=== PATIENT | female | born 1980 | race Two or more races ===

== ENCOUNTER 2016-07-04 16:16 | Emergency (ER) | payer OTHER ==
[~2016-07-04] VITALS: Ht 157.5 cm; Wt 85.9 kg
[~2016-07-04 16:16] MED LIST: RANI75TA12 PO
[2016-07-04 16:45] VITALS: BP 136/67
--- NOTE | 2016-07-04 17:00 | PHYS DOC ---
Past Medical History Past Medical History: Anxiety Past Surgical History: Cholecystectomy Alcohol Use: Occasionally Drug Use: None Adult General Chief Complaint Chief Complaint: UPPER EXTREMITY PAIN HPI HPI Patient is a 36 year old female presents emergency room with a complaint of left shoulder pain after slip and fall within the past 2 hours while walking out of the gym. Patient states that she slipped on ice and fell with her left arm extended which caught her body weight. States that she felt pain in her left shoulder since that period of time. Patient denies any history of previous shoulder injuries. She denies any history of bone forming disorders. Patient denies striking her head or loss of consciousness during this episode.] Review of Systems Review of Systems Constitutional: Denies fever or chills [] Eyes: Denies change in visual acuity, redness, or eye pain [] HENT: Denies nasal congestion or sore throat [] Respiratory: Denies cough or shortness of breath [] Cardiovascular: No additional information not addressed in HPI [] GI: Denies abdominal pain, nausea, vomiting, bloody stools or diarrhea [] : Denies dysuria or hematuria [] Musculoskeletal: Denies back pain or joint pain [] Integument: Denies rash or skin lesions [] Neurologic: Denies headache, focal weakness or sensory changes [] Endocrine: Denies polyuria or polydipsia [] Allergies Allergies Allergies Coded Allergies Type Severity Reaction Last Updated Verified No Known Drug Allergies 10/19/13 No Physical Exam Physical Exam Constitutional: Well developed, well nourished, no acute distress, non-toxic appearance. [] HENT: Normocephalic, atraumatic, bilateral external ears normal, oropharynx moist, no oral exudates, nose normal. [] Eyes: PERRLA, EOMI, conjunctiva normal, no discharge. [] Neck: Normal range of motion, no tenderness, supple, no stridor. [] Cardiovascular:Heart rate regular rhythm, no murmur [] Lungs & Thorax: Bilateral breath sounds clear to auscultation [] Abdomen: Bowel sounds normal, soft, no tenderness, no masses, no pulsatile masses. [] Skin: Warm, dry, no erythema, no rash. [] Back: No tenderness, no CVA tenderness. [] Extremities: Left shoulder is normal in appearance and nontender to palpation upon exam. Patient does complain of increased pain when performing abduction and circumduction. She also complains of increased pain she is attempting to reach to her back as if she is attempting to scratch her back. There is no palpable defect, deformity, instability or crepitus. Patient's left elbow, forearm, wrist and hand are normal in appearance and nontender palpation. Left upper extremity is neurovascularly intact with capillary refill less than 2 seconds. Neurologic: Alert and oriented X 3, normal motor function, normal sensory function, no focal deficits noted. [] Psychologic: Affect normal, judgement normal, mood normal. [] Current Patient Data Vital Signs Vital Signs Date Time Temp Pulse Resp B/P Pulse Ox O2 Delivery O2 Flow Rate FiO2 07/04/16 16:45 98.5 61 20 99 Room Air 98.5 EKG EKG [] Radiology/Procedures Radiology/Procedures 3 views patient's left shoulder performed with adequate technique. There is no evidence of fracture or dislocation. Course & Med Decision Making Course & Med Decision Making Pertinent Labs and Imaging studies reviewed. (See chart for details) [] Dragon Disclaimer Dragon Disclaimer This electronic medical record was generated, in whole or in part, using a voice recognition dictation system. Departure Departure Impression: Primary Impression: Left shoulder strain Disposition: HOME, SELF-CARE Condition: GOOD Referrals: NAIDA PEACE (PCP) Patient Instructions: Shoulder Sprain Additional Instructions: 1. X-rays of your shoulder today are normal. 2. Take the medication as prescribed. 3. Review the discharge instructions for self-care reasons to return the emergency department. 4. Call your primary care doctor's office Tuesday to schedule follow-up appointment to be seen within the next 5-7 days. Scripts Hydrocodone/Apap 5-325 ([place] 5-325 Tablet)1 Each Tablet1 Tab PO PRN Q6HRS PRN PAIN #10 TAB Prov:CHANELL RIVERA 07/04/16 Naproxen Sodium (Anaprox Ds)550 Mg [id number] Mg PO every 12 hours #20 Prov:CHANELL RIVERA 07/04/16 CHANELL RIVERA Jul 04, 2016 17:00
[2016-07-04] MEDS ORDERED: HYDR-971 PO (18:00)
[2016-07-04] MEDS ORDERED: NAPR550T PO (18:00)
--- NOTE | 2016-07-05 07:59 | RAD ---
Left shoulder, 3 views, 07/04/2016: History: Pain after a fall No fracture or dislocation is identified. The periarticular soft tissues are unremarkable. IMPRESSION: No acute left shoulder abnormality is detected.
== END 2016-07-04 18:04 | disposition home or self-care (01) ==
LOC: ER 16:16
DX: S46.912A Strain of unspecified muscle, fascia and tendon at shoulder and upper arm level, left arm, initial encounter (principal); W01.0XXA Fall on same level from slipping, tripping and stumbling without subsequent striking against object, initial encounter; Y93.89 Activity, other specified; Y92.89 Other specified places as the place of occurrence of the external cause; Y99.8 Other external cause status
CPT/HCPCS: 73030; 99284

== ENCOUNTER 2016-11-15 10:25 | Emergency (ER) | payer OTHER ==
[~2016-11-15 10:25] MED LIST changes: +HYDR-971 PO; +NAPR550T PO
[2016-11-15 10:48] VITALS: BP 141/74
[2016-11-15 12:08] LABS: BILIRUBIN,URINE NEGATIVE (NEG); GLUCOSE,URINE NEGATIVE (NEG); NITRITE,URINE NEGATIVE (NEG); PROTEIN,URINE NEGATIVE (NEG-TRACE); UROBILINOGEN,URINE 0.2 mg/dL (0.2 mg/dL)
[2016-11-15 12:18] LABS: BACTERIA,URINE FEW /HPF (0-FEW); RBC,URINE 0 /HPF (0-2); SQUAMOUS EPITHELIAL CELL,UR MOD /LPF; YEAST,URINE PRESENT /HPF
[2016-11-15] MEDS ORDERED: cefTRIAXone IM 250 MG VIAL IM ONE (13:45)
[2016-11-15] MEDS ORDERED: AZITHROMYCIN 250 MG TABLET. PO ONE (13:45)
[2016-11-15] MEDS ORDERED: FLUCONAZOLE 100 MG TABLET. PO ONE (13:45)
[2016-11-15] MEDS ORDERED: AMOX1TAB61 PO (13:52)
[2016-11-15] MEDS ORDERED: FLUC150T PO (13:52)
--- NOTE | 2016-11-15 13:52 | PHYS DOC ---
Past Medical History Past Medical History: Anxiety Past Surgical History: Cholecystectomy Alcohol Use: Occasionally Drug Use: None Adult General Chief Complaint Chief Complaint: ABDOMINAL PAIN HPI HPI Patient is a 36 year old female who presents with suprapubic pain for about 2 weeks. She was seen in urgent care 2 weeks ago with this complaint and was diagnosed with UTI. She was started on Bactrim. She did have some urinary urgency and some dysuria which resolved, but the suprapubic discomfort has not gone away. She is also noticed a little bit of a clear vaginal discharge. Patient has not had frequent UTIs. She did have a Mirena IUD placed on August 10 and has not really had consistent menstrual periods since then. She did have some spotting a while back. The IUD was placed by the health department. 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 Patient is sexually active. She has not had a fever. Review of Systems Review of Systems Constitutional: Denies fever or chills [] Respiratory: Denies cough or shortness of breath [] GI: Denies abdominal pain, nausea, vomiting, bloody stools or diarrhea [] : As in history of present illness Current Medications Current Medications Current Medications Medications (Trade) Dose Ordered Sig/[place] Start Time Stop Time Status Last Admin Dose Admin Azithromycin (Zithromax) 1,000 mg 1X ONCE 11/15/16 13:45 11/15/16 13:48 DC 11/15/16 13:57 1,000 MG Ceftriaxone Sodium (Rocephin Im) 250 mg 1X ONCE 11/15/16 13:45 11/15/16 13:48 DC 11/15/16 13:57 250 MG Fluconazole (Diflucan) 100 mg 1X ONCE 11/15/16 13:45 11/15/16 13:48 DC 11/15/16 13:57 100 MG Allergies Allergies Allergies Coded Allergies Type Severity Reaction Last Updated Verified No Known Drug Allergies 10/19/13 No Physical Exam Physical Exam Constitutional: Well developed, well nourished, no acute distress, non-toxic appearance. Alert, mentating normally. HENT: Normocephalic, atraumatic, bilateral external ears normal, nose normal. [ ] Eyes: conjunctiva normal, no discharge. [] Neck: Normal range of motion, no stridor. [] Abdomen: Bowel sounds normal, soft, no tenderness, no masses, no pulsatile masses. [] Pelvic exam: External genitalia normal. Vaginal exam normal. Cervix without cervicitis. Some whitish discharge present over the cervix, I am not able to definitively see the IUD string. Bimanual exam without significant cervical motion tenderness, uterus not enlarged or tender, no significant adnexal tenderness. Skin: Warm, dry, no erythema, no rash. [] Extremities: No tenderness, no cyanosis, no clubbing, ROM intact, no edema. [] Neurologic: Alert and oriented X 3, normal motor function, normal sensory function, no focal deficits noted. [] Current Patient Data Vital Signs Vital Signs Date Time Temp Pulse Resp B/P (MAP) Pulse Ox O2 Delivery O2 Flow Rate FiO2 11/15/16 10:48 98.5 70 16 141/74 (96) 99 Room Air 98.5 Lab Values Laboratory Tests Test 11/15/16 09:46 11/15/16 10:30 POC Urine HCG, Qualitative Hcg negative (Negative) Urine Collection Type Unknown Urine Color Yellow Urine Clarity Clear Urine pH 6.0 Urine Specific [place] <=1.005 Urine Protein Negative mg/dL (NEG-TRACE) Urine Glucose (UA) Negative mg/dL (NEG) Urine Ketones (Stick) Negative mg/dL (NEG) Urine Blood Trace (NEG) Urine Nitrite Negative (NEG) Urine Bilirubin Negative (NEG) Urine Urobilinogen Dipstick 0.2 mg/dL (0.2 mg/dL) Urine Leukocyte Esterase Negative (NEG) Urine RBC 0 /HPF (0-2) Urine WBC 1-4 /HPF (0-4) Urine Squamous Epithelial Cells Mod /LPF Urine Bacteria Few /HPF (0-FEW) Urine Yeast Present /HPF EKG EKG [] Radiology/Procedures Radiology/Procedures [] Course & Med Decision Making Course & Med Decision Making Pertinent Labs and Imaging studies reviewed. (See chart for details) 36-year-old female who is continuing to have suprapubic/pelvic pain after a UTI was treated with Bactrim. Today, she does not have a definite UTI but she does have yeast present in her urine. Pelvic exam is pretty unremarkable, but her area of tenderness is very well localized to the suprapubic area so since she has an IUD I feel that we should treat her for possible mild endometritis. I discussed this with the patient his agreeable. She was given Rocephin and azithromycin in the emergency department, and I will continue her on Augmentin as an outpatient. If her problems continue, she may need to have the IUD removed. I also gave her 1 dose of Diflucan here and a prescription for another one to take once or Augmentin and is finishing. [] Dragon Disclaimer Dragon Disclaimer This electronic medical record was generated, in whole or in part, using a voice recognition dictation system. Departure Departure Impression: Primary Impression: Pelvic pain Additional Impressions: Endometritis Vaginal candidiasis IUD (intrauterine device) in place Disposition: HOME, SELF-CARE Condition: STABLE Referrals: MELISSA VAZ MD (PCP) Patient Instructions: Pelvic Pain, Female, [id number] Additional Instructions: As we discussed, you do have a yeast infection, which may be a side effect of antibiotics. We gave you a dose of Diflucan today in the ED and I gave your prescription to take another dose when you are finishing up your antibiotics. We gave you antibiotics in the emergency department today and I want you to continue them for 10 days. I wrote a prescription for Augmentin. Sometimes uterus infections can be caused by IUDs. If you continue to have problems you may need to have your IUD removed. 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 Scripts Fluconazole (DIFLUCAN) 150 Mg Tablet 150 MG PO DAILY for yeast infection, #1 TAB Take tablet when you are finishing Augmentin Prov: DIMAS CLAUDIO MD 11/15/16 Amoxicillin/Potassium Clav (AUGMENTIN 875-125 TABLET) 1 Each Tablet 1 TAB PO BID for pelvic pain, #20 TAB Prov: DIMAS CLAUDIO MD 11/15/16 Problem Qualifiers DIMAS CLAUDIO MD November 15, 2016 13:52
== END 2016-11-15 14:03 | disposition home or self-care (01) ==
LOC: ER 10:25
DX: N71.9 Inflammatory disease of uterus, unspecified (principal); B37.3 Candidiasis of vulva and vagina; F41.9 Anxiety disorder, unspecified; Z97.5 Presence of (intrauterine) contraceptive device; Z90.49 Acquired absence of other specified parts of digestive tract
CPT/HCPCS: 81001; 81025; 87491; 87591; 96372; 99284; J0696; Q0144; 84703